=== PATIENT | male | born 1985 | race Caucasian/White ===

== ENCOUNTER → 2018-05-31 23:14 | Outpatient (CLI) | payer OTHER, SELFPAY ==
[2018-05-25 13:22] VITALS: BMI 22.8
== END ==
PROVIDERS: Referring Provider Nurse Practitioner Family
DX: G47.30 Sleep apnea, unspecified (principal)
CPT/HCPCS: 95810

== ENCOUNTER → 2018-06-28 22:22 | Outpatient (CLI) | payer OTHER, SELFPAY ==
[2018-05-25 13:22] VITALS: BMI 22.8
== END ==
PROVIDERS: Referring Provider Nurse Practitioner Family
DX: G47.33 Obstructive sleep apnea (adult) (pediatric) (principal)
CPT/HCPCS: 95811

== ENCOUNTER → 2018-08-19 14:41 | Outpatient (CLI) | payer OTHER, SELFPAY ==
[2018-05-25 13:22] VITALS: BMI 22.8
== END ==
DX: Z00.00 Encounter for general adult medical examination without abnormal findings (principal)

== ENCOUNTER 2019-02-07 09:41 | Day surgery (SDC) | payer OTHER, SELFPAY ==
[2019-01-04 09:08] VITALS: BMI 22.8
--- NOTE | 2019-01-24 09:16 | HP_ITS ---
Intake Vital Signs 01/04/19 Body Mass Index (BMI) 22.8 01/04/19 Height 6 ft 01/04/19 Weight: 167 lb 01/04/19 Body Mass Index (BMI) 22.6 01/04/19 Blood Pressure 100/74 01/04/19 Blood Pressure Location Rt brachial 01/04/19 Blood Pressure Position Sitting 01/04/19 Respiratory Rate 18 01/04/19 Pulse Rate 70 01/04/19 Pulse Source Monitor 01/04/19 Temperature 97.7 F L 01/04/19 Temperature Source Oral 01/04/19 Pulse Ox 98 01/04/19 Oxygen Delivery Method room air Intake Visit Reasons: Discuss L Inguinal Hernia Surgery (Seen Fe) Project Management It Specialist Required: No Is patient in pain?: No Allergies No Known Allergies Allergy (Verified 01/04/19 09:07) Medications NK 05/25/18 [History Confirmed 01/04/19] PFSH Medical History (Updated 01/04/19 @ 09:06 by Alexa Salcedo) Left inguinal hernia (Acute) Sleep apnea (Acute) Surgical History (Updated 01/04/19 @ 09:05 by Alexa Salcedo) History of mandibular surgery (Acute) History of wisdom tooth extraction (Acute) history left inguinal hernia repair with mesh (Acute) history of pin placement thumb (Acute) Family History Grandmother Breast cancer Aunt Breast cancer Father Hypertension High cholesterol Brother Hypertension Social History (Updated 01/04/19 @ 10:05 by Andrew Garcia MD) Smoking Status: Former smoker alcohol intake: current alcohol intake frequency: a few times a month substance use type: does not use HPI HPI HPI: LESTER SUE, is a 33 M who presents to the office today for HPI HPI Surgical H&P: Yes HPI: LESTER SUE, is a 33 M who presents to the office today for Recurrent left inguinal hernia. Patient reports bulging in his left groin. Patient reports he had left inguinal hernia repair in an open fashion in 2007. About 3 years ago he noticed the bulging return. He says that whenever he does heavy lifting it hurts. He is not having any nausea or vomiting or fevers or chills. ROS General General: No weight change, appetite, fatigue, colon cancer, breast cancer or weakness HEENT HEENT: No difficulty swallowing, eye injury, eye surgery, swollen glands or hoarseness Endo Endocrine: No thyroid disease, diabetes mellitus, thyroid cancer, Hair loss, heat intolerance or cold intolerance Skin Skin: No rash or changing moles Breast Breast: No left breast lump, right breast lump, nipple discharge, breast pain, abnormal mammogram, abnormal US or breast enlargement Musc Musculoskeletal: No back problems, arthritis, rheumatoid arthritis, gout or joint pain Cardio Cardiovascular: No murmur, pacemaker, heart disease, atrial fibrillation, high blood pressure, heart attack, heart stent, palpitations, shortness of breat with exertion or chest pain Psych Psychiatric: No depression, anxiety or hearing voices Resp Respiratory: No shortness of breath, Yes sleep apnea, No cough, No COPD, No asthma, No emphysema, No wheezing Gastro Gastrointestinal: No abdominal pain, No nausea or vomiting, No diarrhea, No constipation, No blood in stool, No acid reflux, No hemorrhoids, No ulcers, No gallbladder problem, No black,tarry stools Gil Hematologic: No blood thinners, No blood disorders, No bleeding, No anemia, No blood clots Neuro Neurologic: No system reviewed and no additional complaints, except as docu, No as per HPI, No abnormal walking, No abnormal hearing, No abnormal movements, No abnormal speech, No behavioral changes, No burning sensations, No confusion, No seizure-like activity, No unsteadiness, No dizziness, No localized weakness, No frequent falls, No headache(s), No lack of coordination, No loss of vision, No memory loss, No numbness, No other visual disturbances, No radiating pain, No restless legs, No sensory deficit, No fainting, No tingling, No tremor(s), No weakness, No other Exam Const General: cooperative Orientation: alert, oriented x3 HENMT Head: normal to inspection Ears: hearing grossly normal bilaterally Eyes General: appearance normal, both eyes and all related structures Visual Mendoza: normal visual mendoza by confrontation Neck Neck: normal visual inspection Chest Chest palpation & inspection: normal inspection of the chest Breast Palpation: No nipple discharge Resp Effort & Inspection: normal respiratory effort Auscultation: clear to auscultation bilaterally Cardio Rate: regular rate Rhythm: regular rhythm Heart Sounds: no murmurs GI Inspection: non-distended Palpation: soft, nontender Other: Patient does have bulging the left groin which is easily reducible. Musc Cervical Spine: normal cervical lordosis, cervical ROM normal Skin General: no rashes or lesions noted Neuro General: alert, oriented x3 Cranial Nerves: CN's II-XI intact bilaterally Cognition: normal cognition Extrem General: normal to inspection, full ROM Psych Appearance: grossly normal Affect: normal affect Assessment & Plan Problems 1. Recurrent left inguinal hernia K40.91 reducible Plan The patient has recurrent left inguinal hernia. It is reducible. The patient is not having any symptoms on his right side. I discussed robotic assisted laparoscopic left inguinal hernia repair with mesh with the patient. I also discussed fixing the contralateral side if there is a hernia and the patient would like to proceed with that as well. I discussed the procedure in detail including the risks. I discussed the risks of bleeding, infection, chronic groin pain, spermatic cord injury, hernia recurrence, bowel injury. Patient understands the risks and is willing to proceed. Andrew Garcia MD Pager: [facility] [address] [place] [address], [address] [place] [address] Office: Coding Level of Care Code Off vis,new,level 4 Diagnoses Recurrent left inguinal hernia K40.91 Time Spent (min) 45 I have re-examined the patient. There are no clinical changes since date of exam.
--- NOTE | 2019-02-04 10:07 | EKG12_ITS ---
Test Reason : PRE OP Blood Pressure : / mmHG Vent. Rate : 070 BPM Atrial Rate : 070 BPM P-R Int : 170 ms QRS Dur : 106 ms QT Int : 372 ms P-R-T Axes : 050 141 026 degrees QTc Int : 401 ms Normal sinus rhythm Right axis deviation Incomplete right bundle branch block Abnormal ECG Confirmed by SUMEET RENTERIA, CAMRYN ([id number]), medical transcription editor GABE BELL ([id number]) on 02/08/2019 2:42:38 PM Referred By: Andrew Garcia Confirmed By:CAMRYN FAY MD
[2019-02-04 10:56] LABS: Hematocrit 46.9 % (40-54); Hemoglobin 15.5 g/dL (13.0-16.5); Mean Corpuscular Hgb 30.2 pg (27.0-32.0); Mean Corpuscular Volume 91.2 fL (80-94); Mean Platelet Vol. 8.9 fl (6.2-12.0); Platelet Count 333 K/mm3 (150-450); RBC Distribution Width CV 13.2 % (11.6-14.6); RBC Distribution Width SD 44.9 fl (35.1-43.9); Red Blood Count 5.14 M/mm3 (4.6-6.2); White Blood Count 5.4 K/mm3 (4.4-11.0)
[2019-02-07] VITALS (7 sets, daily range): BP systolic 123–136; BP diastolic 70–95; PULSE 60–82; RESP 16–20; TEMP 36.5–36.9; O2SAT 92–100; BMI 23.2
[2019-02-07] MEDS: Lactated Ringers 1,000 ML 100 ML IV ×2 (10:38→10:45)
[2019-02-07] MEDS: Cefazolin 2 GM in 0.9% Normal Saline 100 ML IV (11:01)
[2019-02-07] MEDS: Bupivacaine Mpf 0.5% 30 ML VIAL (14:30)
--- NOTE | 2019-02-07 14:56 | PCM.DC.HER ---
Discharge Diet: Light diet - advance as tolerated Discharge Activity: Return to Normal Activity, May Not Drive - for 2-3 days or while taking narcotic pain meds., May Shower - with the bandage in place 1-2 days after surgery. Lifting Restrictions: 20 pounds for 8 weeks. Additional Activity Instructions:: Climbing stairs is fine, walking is encouraged. Sitting in bed may be uncomfortable. Sitting up using your lateral muscles (sitting up sideways) is usually more comfortable. Do not drive, work heavy equipment of sign legal documents for 24 hours. If your hernia repair was an ingunial repair, you may have scrotal swelling, an ice pack and/or athletic support can provide more comfort. Pain medications may cause nausea, you should typically eat light foods as you take your pain medications. Pain medications may also cause constipation. If you have difficulty with this, discuss with your doctor. Call your doctor if your incision/area has: Continuous Slow Oozing, Sudden Increased Bleeding, Increased Pain/ Swelling, Increased Redness, Foul Smelling Discharge Call your doctor if you observe: Fever of 101 or Higher Suture Line Care: Avoid Pulling/Pushing, Avoid Pinching/Bending Change Dressing in (Days):: 3 - Leave steri-strips for 1 week. May protect with a guaze bandaid. Cleanse incision/area with: Keep Dressing Clean & Dry Allergies/Adverse Reactions: Allergies No Known Allergies Allergy (Verified 01/31/19 08:58) Medications to take at Discharge Cholecalciferol (VIT D3) [Vitamin D] 1,000 unit PO DAILY 01/31/19 Oxycodone HCl/Acetaminophen [Percocet 5/325] 1 - 2 tablet PO Q4H PRN PRN 4 Days #20 tablet 02/07/19 The following prescriptions were given: Oxycodone HCl/Acetaminophen [Percocet 5/325] 1 - 2 tablet PO Q4H PRN PRN 4 Days #20 tablet PRN Reason: Pain Transmission Status: Sent to [facility] Orders to be completed after discharge: 12 Lead EKG [CVS] Time Frame: 01/31/19, Facility: [facility], Location: Cardiovascular Services CBC-Complete Blood Cnt No Diff Time Frame: 01/31/19, Facility: [facility], Location: Laboratory Primary Care Physician: Lesli Sanders [Primary Care Provider] - Test Results: Test results from this visit will be discussed in further detail at your follow-up appointment, if applicable. Please Follow Up With: Andrew Garcia MD When: Please call to schedule 2 week follow up appointment. [phone]
--- NOTE | 2019-02-07 14:57 | OP.PCM_ITS ---
Problem List (1) Right inguinal hernia Status: Acute (2) Recurrent left inguinal hernia Status: Chronic Comment: reducible Report of Operation Date of Procedure: 02/07/19 Pre-Operative Diagnosis: Recurrent left inguinal hernia Post-Operative Diagnosis: 1. Recurrent left inguinal hernia. 2. Right inguinal hernia Surgery/Procedure Performed:: 1. Robotic assisted laparoscopic recurrent left inguinal hernia repair with mesh. 2. Robotic assisted laparoscopic right inguinal hernia repair with mesh Description of Surgical Findings:: The patient had a recurrent hernia on the left side. The mesh was apparently in the direct space and the patient also had a large indirect hernia. On the right the patient did have a direct and indirect hernia Description of Procedure: The patient was brought back to the operating room and general anesthesia was induced. The abdomen was prepped and draped in usual sterile fashion. An incision was made superior to the umbilicus and the Veress needle was placed into the abdomen and a drop test was performed. The abdomen was then insufflated to 15 mmHg. Next the Veress needle was removed and the camera port was placed into this incision. There were no injuries from entry to the abdomen. An 8 mm port was placed in the right upper quadrant and left upper quadrant under direct visualization. The patient was placed in the Trendelenburg position and the robot was docked. The left groin was addressed first. The patient had a large piece of mesh coming through the direct space. This was tightly adherent to the surrounding tissue and was unable to be dissected free. There was an incision made in the superior peritoneum and this was dissected inferiorly. Dissection was carried laterally until the indirect sac was encountered. This was slowly reduced into the abdomen but it was very large. Once was free into the abdomen was inverted into the peritoneal cavity. Next dissection was carried medially until the mesh was encountered. The peritoneum was incised around the mesh and dissected free. Dissection was carried medially until the pubic tubercle was identified. Dissection was then taken inferiorly. Next a large piece of pro-software support representative mesh was placed across both defects and the old mesh. Next the peritoneum was re-approximated superiorly using a running 3-0V lock suture. Once the medial portion was reached the hernia sac was divided lengthwise to allow for coverage of the inferior mesh. Using another 3-0V lock suture this was sutured in place to completely cover the mesh with peritoneum. There were 2 small defect in the peritoneum which were closed with interrupted 4-0 Vicryl sutures. Once this was completed the mesh was in good position and completely covered with peritoneum. Next attention was paid to the right side. Patient had a large direct and indirect hernia on the right. The peritoneum was scored and the dissection was taken inferiorly and medially until the pubic tubercle was reached. Next dissection was carried laterally until the direct sac was reduced. Next starting laterally the dissection was carried toward the indirect sac and this was reduced into the abdomen. Dissection was then carried posteriorly until there was enough of an overlap for the mesh. Next a piece of pro-software support representative mesh was placed into the groin and unfolded. This completely covered both defects. The mesh was tacked to the medial pubic tubercle using a 4-0 Vicryl suture. Next the peritoneum was reapproximated using running 3-0 Vloc suture. The mesh was completely covered by peritoneum. Next both sides were inspected as the abdomen desufflated and appeared to be in good position. The ports were removed and the skin was injected with local anesthetic and closed with interrupted 4-0 Monocryl sutures and Steri-Strips and bandages. Testicles were checked at the end the case and the patient was taken to PACU stable condition. Grafts/Implants Used: Pro-software support representative mesh - Admit VTE Documentation VTE Mechan Device Prophylaxis: SCD's
[2019-02-07] MEDS: Acetaminophen 325 MG Tablet PO (17:14)
[2019-02-07] MEDS: oxyCODONE 5 MG Tablet PO (17:15)
== END 2019-02-07 17:33 | disposition home or self-care (01) ==
LOC: SDC 09:42 → AC 09:44
PROVIDERS: Referring Provider Surgery; Visit Provider Surgery
PROC: (CPT 49650; principal; 2019-02-07 11:10)
DX: K40.21 Bilateral inguinal hernia, without obstruction or gangrene, recurrent (principal); E78.00 Pure hypercholesterolemia, unspecified; G47.30 Sleep apnea, unspecified; Z87.891 Personal history of nicotine dependence
CPT/HCPCS: 00840; 49650; 49651; S2900; 36415; 85027; 93005; J7120; J2405

== ENCOUNTER → 2019-03-25 12:55 | Outpatient (CLI) | payer OTHER, SELFPAY ==
[2019-03-09 08:27] VITALS: BMI 23.1
--- NOTE | 2019-03-25 12:57 | ECHOD_ITS ---
Reason For Study: ARRHYTHMIA Procedure This was a 2D Doppler, Color Flow transthoracic echocardiogram. Exam performed in department. Left Ventricle Normal LV size. Left ventricular systolic function is lower limits of normal. The estimated ejection fraction is 53 %. Normal diastology for age. No regional wall motion abnormalities noted. Right Ventricle Normal RV size. Normal systolic function. Atria Normal left atrium. Normal right atrium. Mitral Valve Normal mitral valve. Tricuspid Valve Normal tricuspid valve. Aortic Valve Normal aortic valve. Trisinus/trileaflet aortic valve. Pulmonic Valve Normal pulmonic valve. Great Vessels Normal aortic root. Pericardium/Pleural No pericardial effusion. MMode/2D Measurements & Calculations LVIDd: 5.4 cm IVSd: 0.84 cm Ao root diam: 3.4 cm LVIDs: 3.8 cm LVPWd: 0.87 cm RVDd: 3.3 cm FS: 29.8 % LAV(MOD-bp): 58.8 ml LA A4 area: 17.5 cm2 LA dimension(2D): 2.8 cm LAV(MOD-bp) Indexed: 29.5 ml/m2 LAV(MOD-sp2): 51.7 ml LAV(MOD-sp4): 51.7 ml RA A4 area: 14.5 cm2 Time Measurements MV dec time: 0.14 sec Doppler Measurements & Calculations MV E max darren: 72.4 cm/sec Lat Peak E' Darren: 11.5 cm/sec Med Peak E' Darren: 10.6 cm/sec MV A max darren: 47.1 cm/sec E/E' lat: 6.3 E/E' med: 6.8 MV E/A: 1.5 Ao V2 max: 89.6 cm/sec LV V1 max: 74.3 cm/sec PA V2 max: 92.2 cm/sec Ao max P.2 mmHg LV V1 max P.2 mmHg TR max darren: 198.7 cm/sec TR max P.8 mmHg Interpretation Summary Normal LV size. Left ventricular systolic function is lower limits of normal. The estimated ejection fraction is 53 %. Normal diastology for age. Structurally normal valves. Ordering Physician: Morris Rosales Referring Physician: Lesli [facility] Performed By: Alexa Erazo, JOSI, RVT
== END ==
PROVIDERS: PCP Nurse Practitioner Family; Referring Provider Internal Medicine Cardiovascular Disease; Visit Provider Internal Medicine Cardiovascular Disease
DX: I45.10 Unspecified right bundle-branch block (principal); I49.8 Other specified cardiac arrhythmias
CPT/HCPCS: 93306

== ENCOUNTER 2020-10-02 18:11 | Emergency (ER) | payer OTHER, SELFPAY ==
[2019-03-09 08:27] VITALS: BMI 23.1
[2020-10-02 18:11] VITALS: BP 128/76; PULSE 87; RESP 18; TEMP 35.9; O2SAT 96; BMI 28.8
--- NOTE | 2020-10-02 18:24 | ED.VIS.LOWEX ---
HPI History of Present Illness Chief Complaint: Lower Extremity Injury Detail of Chief Complaint: Injury to his right ankle about a half an hour ago Informant: patient Narrative Narrative: Patient states that he was playing basketball about half an hour ago when he was running down the court and felt a pop in his ankle. Patient felt like somebody had stepped on him. Patient was able to use his leg like a crutch and put some weight on it but having hard time moving his foot. Patient otherwise has no medical history. He denies any other injuries. [facility] Medical History (Updated 10/02/20 @ 18:[address] Anthony Steiner, DO) Abnormal electrocardiogram Incomplete right bundle branch block Left inguinal hernia Obstructive sleep apnea Recurrent left inguinal hernia Right inguinal hernia Home Medications cholecalciferol (vitamin D3) 1,000 unit PO DAILY 01/31/19 [History Last Taken Unknown] psyllium husk 0.52 gram capsule 0.52 g PO DAILY 03/09/19 [History Last Taken Unknown] hydrocodone-acetaminophen 1 tab PO Q4H PRN PRN 2 Days #10 tablet 10/02/20 [Rx Last Taken Unknown] Allergy/AdvReac Type Severity Reaction Status Date / Time No Known Allergies Allergy Verified 10/02/20 18:14 Family History Grandmother Breast cancer Aunt Breast cancer Father Hypertension High cholesterol Brother Hypertension Grandfather Myocardial infarction Grandfather Myocardial infarction Surgical History History of mandibular surgery History of open reduction and internal fixation (ORIF) procedure History of wisdom tooth extraction Hx of bilateral inguinal hernia repair (02/07/19) Social History (Updated 03/09/19 @ 09:[address] Morris Rosales MD) Smoking Status: Former smoker alcohol intake: current alcohol intake frequency: a few times a month substance use type: does not use ROS ROS ED Constitutional Constitutional ED: Reports systems reviewed and no addt'l complaints, except as documented; Denies body ache(s), change in weight or chills Eyes Eyes: Denies acute decrease in peripheral vision, change in vision, double vision or loss of vision ENT ENT ED: Reports none; Denies ear pain, lip swelling, loss taste/smell, neck pain, otalgia or sore throat Cardiovascular Cardiovascular: Reports none; Denies abdominal pain, chest pain with activity, leg edema, lightheadedness, palpitations, rapid heart rate or syncope Respiratory/Chest Respiratory/Chest: Reports none; Denies change in mental status, dry cough, dyspnea, hemoptysis, shortness of breath at rest or shortness of breath with exertion Gastrointestinal Gastrointestinal: Reports none; Denies abdominal pain, change in stool character, diarrhea, hematemesis, hematochezia, melena, rectal bleeding or vomiting Genitourinary Genitourinary ED: Reports none; Denies abdominal discomfort, anuria, dysuria, genital pain or polyuria Musculoskeletal Musculoskeletal: Reports none and other Details: Right ankle injury ; Denies arthralgias, back pain, difficulty walking, extremity pain, muscle weakness or myalgias Integumentary Reports none; Denies abscess or rash Neurologic Neurologic: Reports none; Denies abnormal gait, confusion, focal weakness, frequent falls, headache(s), loss of vision, numbness, paresthesias, radicular pain, vertigo or weakness Psychiatric Psychiatric: Reports systems reviewed and no addt'l complaints, except as documented and none; Denies behavioral changes, confusion, difficulty concentrating, hallucinations, suicidal ideation, tactile hallucinations or visual hallucinations Endocrine Endocrinology: Denies none, cold intolerance, excessive sweating, fatigue or heat intolerance Hematologic/Lymphatic Hematologic/Lymphatic: Reports none; Denies anemia, easy bleeding or easy bruising Allergic/Immunologic Allergic/Immunologic ED: Denies as per HPI, none, lip swelling, mouth swelling, throat swelling, tongue swelling or hives EXAM Physical Exam Const Vital Signs: 10/02/20 18:11 Temperature 96.6 F L Temperature Source Temporal Pulse Rate 87 Respiratory Rate 18 Blood Pressure 128/76 H Blood Pressure Mean 93 Pulse Ox 96 Oxygen Delivery Method Room Air Positive well nourished and well developed General Appearance ED: well developed and NAD HEENT Reports TM's clear and moist mucous membranes normocephalic and atraumatic; Negative for trauma or tenderness Tympanic Membrane ED: Yes TM's clear Eyes PERRL and EOMs intact bilaterally General Eye ED: Negative for pale conjunctiva or scleral icterus Neck no lymphadenopathy, supple and no JVD General: Negative for tenderness Chest Wall inspection of chest normal and palpation of chest normal Chest: Negative for tenderness Resp normal respiratory effort and clear to auscultation bilaterally Effort and Inspection: Negative for respiratory distress or pain with movement Auscultation: Negative for rhonchi, wheezes or diminished lung sounds Cardio regular rate, regular rhythm, S1 normal heart sound, S2 normal heart sound and no murmurs Peripheral Pulses: pulses 2+ throughout GI normal to inspection, nondistended, normoactive bowel sounds, soft to palpation, non-tender, non-distended and no masses Back/Spine no CVA tenderness and no thoracic nor lumbar tenderness Extremity normal to inspection Extremity Narrative: Evaluation of the right ankle reveals deformity over the Achilles tendon. Patient has a positive Quinn's test. Tenderness over the calf on exam noted. Patient has no bony tenderness at the ankle or foot. Neurovascularly intact distally. General Extremety ED: Negative for edema General Extremity: Negative for edema Neuro oriented x3, CN's II-XII intact bilaterally, no sensory deficits noted and gait normal Sensorium / Orientation: awake, alert, oriented to person, oriented to place and oriented to time Motor Exam: strength 5/5 throughout and strength abnormal Psych mental status grossly normal Skin no rashes or lesions noted and no wounds MDM MDM MDM Narrative Medical decision making narrative: Case will be discussed with orthopedic surgeon. Patient will be placed in a posterior splint. He will be given crutches. Patient will be given a prescription for [place] for pain. Patient advised to ice and elevate the extremity. Discharge Plan Triage Chief Complaint: Lower Extremity Injury ED Provider: Anthony Steiner Dx/Rx/DC Orders Instructions: ED Tendon Rupture Achilles Prescriptions: New hydrocodone-acetaminophen [hydrocodone-acetaminophen] 1 TABLET tablet 1 tab PO Q4H PRN PRN (Reason: Pain) 2 Days Qty: 10 RF: 0 No Action psyllium husk [Fiber (psyllium husk)] 0.52 gram capsule 0.52 g PO DAILY RF: 0 cholecalciferol (vitamin D3) 1,000 UNIT tablet 1,000 unit PO DAILY RF: 0 Primary Care Provider: Lesli Burton Referrals: Sawyer Ferrara MD [STAFF PHYSICIAN] - 3-5 Days Lesli Burton [Primary Care Provider] - Disposition Disposition: Home, Self Care
== END 2020-10-02 18:58 | disposition home or self-care (01) ==
LOC: ED 18:35
PROVIDERS: Emergency Provider Emergency Medicine
DX: S86.011A Strain of right Achilles tendon, initial encounter (principal); X58.XXXA Exposure to other specified factors, initial encounter; Y93.67 Activity, basketball; Y92.310 Basketball court as the place of occurrence of the external cause; Y99.9 Unspecified external cause status; G47.33 Obstructive sleep apnea (adult) (pediatric); Z87.891 Personal history of nicotine dependence
CPT/HCPCS: 29515; 99283

== ENCOUNTER → 2020-10-03 13:27 | Outpatient (CLI) | payer OTHER, SELFPAY ==
[2020-10-02 18:11] VITALS: BMI 28.8
--- NOTE | 2020-10-03 13:42 | MRI_ITS ---
STUDY: MRI RIGHT ANKLE WITHOUT CONTRAST REASON FOR EXAM: Male, 34 years old. STRAIN RIGHT ACHILLES TENDON TECHNIQUE: Standardized fat and water weighted pulse sequences were obtained in all 3 orthogonal planes. COMPARISON: None. FINDINGS: There is a complete small to moderate size full-thickness tear of the middle one third aspect of the Achilles tendon, measuring 1.36 cm in diameter. The proximal distal fibers are moderately thickened and abnormal in signal. The portion of the Achilles tendon attachment to the posterior calcaneal facet is normal. A small to moderate amount of fluid is present around the torn tendon and adjacent soft tissues. A small ankle joint effusion is also present. No marrow edema or osteochondral defect or occult fracture is present. The anterior talofibular ligament is completely torn. Normal posterior tibialis tendon. Normal flexor digitorum longus tendon. Normal flexor hallucis longus tendon. Normal peroneus longus and brevis tendons. Normal tibialis anterior tendon. Normal extensor hallucis longus tendon. Normal extensor digitorum longus tendons. Normal plantar fascia. Normal plantar calcaneal tubercles. Normal intrinsic muscles of the rearfoot. Normal distal tibiofibular syndesmotic ligamentous complex. Normal subtalar ligaments and sinus tarsi. Normal deltoid ligamentous complexes. Normal plantar calcaneonavicular (spring) ligament. Normal tibiotalar articulation. Normal talar dome. Normal subtalar articulations. Normal talonavicular articulation. Normal calcaneocuboid articulation. Normal navicular-cuneiform articulations. MRI/Lower Ext Joint Only (Routine) IMPRESSION: 1. 1.36 cm full-thickness tear in the middle one third aspect of the Achilles tendon 2. complete tear of the anterior talofibular ligament. Electronically Signed: Nilo Robledo MD at 17:00 EDT , Service support ,
--- NOTE | 2020-10-03 13:43 | EKG12_ITS ---
Test Reason : PREOP Blood Pressure : / mmHG Vent. Rate : 081 BPM Atrial Rate : 081 BPM P-R Int : 158 ms QRS Dur : 092 ms QT Int : 360 ms P-R-T Axes : 043 056 040 degrees QTc Int : 418 ms Normal sinus rhythm Indeterminate axis Septal [place], age undetermined, cannot be excluded Confirmed by KAYLIN RENTERIA, NAYAN ([id number]), website/blog editor MARIAM COMER ([id number]) on 10/08/2020 1:24:17 PM Referred By: Trevon Newman Confirmed By:NAYAN EWING MD
--- NOTE | 2020-10-03 13:45 | RAD_ITS ---
STUDY: X-RAY CHEST REASON FOR EXAM: Male, 34 years old. PRE OP TECHNIQUE: PA and lateral views of the chest. COMPARISON: None. FINDINGS: The lungs are clear and expanded. There is no demonstrated pleural abnormality. Normal size heart. Normal mediastinum and jermaine. Normal visualized pulmonary arteries. Normal visualized aortic arch and descending thoracic aorta. Normal visualized thoracic spine. Normal visualized ribs, clavicles, and shoulders. There is no demonstrated abnormality of the visualized soft tissue structures of the upper abdomen. RAD/Chest PA and Lateral IMPRESSION: Normal x-ray examination of the chest. Electronically Signed: Wil Mojica MD at 14:42 EDT , Service support ,
[2020-10-03 17:31] LABS: Absolute Lymphocyte Count 1.97 X10^3/uL (0.83-4.51); Absolute Neutrophil Count 3.5 X10^3/uL (2.0-7.7); Basophil# 0.04 X10^3/uL; Basophil% 0.6 % (0-1); Eosinophil# 0.39 X10^3/uL; Hematocrit 44.3 % (40-54); Hemoglobin 15.1 g/dL (13.0-16.5); Lymphocyte # 1.97 X10^3/ul (0.83-4.51); Lymphocyte % 30.4 % (19-41); Mean Corp Hgb Conc 34.1 g/dL (32-36); Mean Corpuscular Hgb 30.7 pg (27.0-32.0); Monocyte# 0.58 X10^3/uL; NRBC Flagged by Analyzer 0 % (0-5); Neutrophil # 3.49 X10^3/uL (2.7-7.7); Neutrophil % 53.8 % (47-70); Platelet Count 343 K/mm3 (150-450); RBC Distribution Width CV 13.1 % (11.6-14.6); RBC Distribution Width SD 43.4 fl (35.1-43.9); Red Blood Count 4.92 M/mm3 (4.6-6.2); White Blood Count 6.5 K/mm3 (4.4-11.0)
[2020-10-03 17:41] LABS: Prothrombin Time (Protime)PT. 12.6 SECONDS (11.7-14.9)
[2020-10-03 18:20] LABS: Anion Gap 8 (5-15); BUN 14 mg/dL (7-18); BUN/Creat Ratio 14.5 RATIO (10-20); Calcium,Total 8.6 mg/dL (8.5-10.1); Chloride 105 mmol/L (98-107); Creatinine, Serum 0.96 mg/dL (0.70-1.30); EST Glomerular Filtration Rate 95 mL/min (>60); Est Glom Filt Rate - Afr Amer 115 mL/min (>60); Glucose 91 mg/dL (74-106); Potassium 3.8 mmol/L (3.5-5.1); Sodium Level 140 mmol/L (136-145)
[2020-10-03 18:51] LABS: Hemoglobin A1c 5.2 % (3.8-5.6)
== END ==
PROVIDERS: Referring Provider Podiatrist Foot & Ankle Surgery; Visit Provider Podiatrist Foot & Ankle Surgery
DX: Z01.810 Encounter for preprocedural cardiovascular examination (principal); S86.011A Strain of right Achilles tendon, initial encounter; X58.XXXA Exposure to other specified factors, initial encounter; Y93.9 Activity, unspecified; Y92.9 Unspecified place or not applicable; Y99.9 Unspecified external cause status
CPT/HCPCS: 36415; 71046; 73721; 80048; 83036; 85025; 85610; 93005

== ENCOUNTER 2020-10-05 12:39 | Day surgery (SDC) | payer OTHER, SELFPAY ==
[2020-10-05] VITALS (7 sets, daily range): BP systolic 128–151; BP diastolic 83–93; PULSE 62–97; RESP 16; TEMP 36.1–36.9; O2SAT 94–100; BMI 24.7
[2020-10-05] MEDS: Lactated Ringers 1,000 ML 100 ML IV (12:50)
[2020-10-05] MEDS: Cefazolin 2 GM in 0.9% Normal Saline 100 ML IV (14:10)
--- NOTE | 2020-10-05 14:15 | RAD_ITS ---
STUDY: X-RAY - RIGHT CALCANEUS REASON FOR EXAM: Male, 34 years old. ACHILLES TENDON RUPTURE REPAIR, OPEN VS PERCUTANEOUS TECHNIQUE: 3 intraoperative fluoroscopic view(s) of the calcaneus were obtained. COMPARISON: None. FINDINGS: A surgical instrument is seen over the proximal aspect of the posterior calcaneal facet. Soft tissue defect/rupture seen in the distal one third region of the Achilles tendon on the initial image. Some lucency is superimposed over the posterior calcaneal facet on the last 2 images which could be related to the soft tissues or possibly to an osteotomy defect. RAD/Calcaneus min 2 Views IMPRESSION: Status post Achilles tendon repair Electronically Signed: Nilo Robledo MD at 23:45 EDT , Service support ,
[2020-10-05] MEDS: Bupivacaine Mpf 0.5% 30 ML VIAL (15:40)
[2020-10-05] MEDS: Lidocaine 1% (30 ml sdv) 30 ML Vial (15:40)
--- NOTE | 2020-10-05 16:05 | PCM.OPRPT ---
Problems Associated Problem List Diagnoses (1) Achilles tendon tear: (2) Pain of right lower extremity: Report of Operation Date of Procedure: 10/05/20 Pre-Operative Diagnosis: Right Achilles tendon rupture Post-Operative Diagnosis: Right Achilles tendon rupture Surgery/Procedure Performed:: Repair of right Achilles tendon rupture Description of Surgical Findings:: Hemostasis: Well-padded pneumatic right thigh tourniquet, 350 mmHg, 67 minutes Materials: Arthrex PARS system was utilized with #2 suture tape, two swivelock bone anchors (4.75), 3-0 vicryl, 4-0 monocryle The patient tolerated the procedure and anesthesia well. The patient was transported to the PACU with vital signs stable and vascular status intact to the surgical limb. To ice and elevate for pain and inflammation management. Postoperative x-rays were reviewed prior to leaving the operating room. Postoperative orders were entered electronically. Surgeon: Zara Canada fingernail former: None (Mario Adler DPM, PGY2) Type of Anesthesia: General and Local (One-to-one mixture of 1% lidocaine plain 0.5% Marcaine plain administered to right lower extremity and local infiltrative manner (preoperative: 7 cc, postoperative: 15 cc)) Special Medications: None Specimen's removed: None Estimated Blood Loss (mL): <50 mL Description of Procedure: Indications: This is a 34-year-old male with significant past medical history of sleep apnea who sustained an Achilles rupture of the right lower extremity earlier this week on 10-02-20. He was playing basketball and felt like somebody kicked him in the back of his leg. There was no contact made and it was noted he was unable to bear weight and no longer had normal muscular function of this limb. He presented to the emergency room and had subsequent MRI performed. This demonstrated a full thickness tear of the Achilles tendon approximately 4 cm proximal to its insertion point. There was a gap of less than 2 cm. Any other reported suspected injury to the ankle per MRI read did not clinically correlate with symptomatic injury at this time. During his referral visit at the [facility], x-ray did not demonstrate any fractures or dislocations. The ankle mortise appeared to be intact. Kager's triangle was not visualized well. Clinically, his neurovascular status remained intact. He did not have plantar flexion of the foot upon the leg when the calf was squeezed during the Quinn test. Preoperative H&P (Dr. Benitez) were reviewed including his diagnostic data. There were no gross abnormalities noted with labs (CBC, CMP), chest xray, or preoperative EKG. Preoperative indications, planned procedure, benefits, risk, anticipated healing time and management were reviewed. The patient understands and elects proceed with surgery at this time. He understands all of the surgical and nonsurgical options including the benefits and risks. No guarantees were made. The patient understands risk and complications include but are not limited to following: pain, swelling, scarring, need for further surgery, tendon contracture, transfer lesion, hardware failure, arthritis, need for further surgery, loss of lower extremity strength, delayed or nonhealing, infection, blood clot, allergic reaction, loss of limb, function, or life. The informed surgical limb and consent were signed. I answered all the patient's questions. The patient also understands there is an inherent risk with being in the hospital and undergoing a procedure during the time of COVID-19 pandemic. The patient understands precautions are being taken to prevent transmission. This patient understands the benefits and risks of having a procedure at this time versus waiting in which the benefits are reasonable at this time. Procedure in detail: The patient was transported to the operating room via cart. General anesthesia was initiated by the anesthesia team. Next, the patient was placed on the operating room table in the prone position in a protective manner. Final verification of the patient, surgery, limb designation was performed via the timeout procedure. A well-padded pneumatic right thigh tourniquet was placed. The right lower extremity was prepped and draped in the usual aseptic manner. The preoperative injection was administered at this time. The leg was exsanguinated with an Esmarch bandage and the tourniquet was inflated. Surgery proceeded in the following manner: Attention was first directed to the posterior leg in which there was a palpable achilles tendon dell. Just proximal to this location and approximately 5 cm above the insertion of the Achilles at the calcaneus, a transverse incision approximately 2-1/2 cm was made through the skin. Blunt dissection was carefully performed down to the peritenon layer in which an injury hematoma was noted. The peritenon was gently reflected to identify the proximal most portion of the torn Achilles tendon. This was grabbed with a Amy. Next the Arthrex PARS jig was applied around the torn Achilles tendon taking care to stay within the peritenon. This was secured in place and the suture tapes were passed according to standard protocol to allow confident purchase through the achilles and to also allow for a locking stitch. The protocol was followed and was successfully performed. Each wire was next pulled to reduce creep from the injury site and to allow approximation of the proximal and distal portions of the torn Achilles. Attention was focused to the posterior calcaneus in which two 1 cm linear incision was made on each side medially and laterally of the Achilles tendon through the skin. Blunt dissection was performed down directly to the calcaneus wall in which drilling and tapping was performed to allow entry of the 4.75 swivel lock anchor. Next a suture passer was entered through the distal portion of the intact Achilles tendon through to the small incision site, and then proximately applied sutures were passed to allow approximation of both achilles ends. This was done according to standard protocol and was solid. At this time the foot was placed in approximately 15 degrees of plantarflexion and this was balanced. There was no longer a palpable dell and the limb was noted to glide in a smooth manner passively. The extra FiberWire was next used to apply a horizontal mattress type locking stitch at the direct repair site. Saline irrigation was performed. The tourniquet was deflated at this time and brisk capillary refill time was noted to all digits of the right foot. No pulsatile bleeding was noted and hemostasis was considered controlled. Throughout the entire procedure there was no necrosis or purulence noted. The peritenon was repaired with 3-0 Vicryl and there was minimal deep sutures applied with 3-0 Vicryl as well. A postoperative injection was administered at this time as noted. All of the skin sites were reapproximated with 4-0 Monocryl utilizing subcuticular and horizontal mattress technique. A postoperative dressing consisting of Steri-Strips, gauze, Kerlix, abdominal pads were applied. Additionally, a well-padded posterior mold splint was applied with the foot in a plantarflexed position. After procedure: The patient tolerated the procedure and anesthesia well. The patient was transported to the PACU with vital signs stable and vascular status intact to the surgical limb. To ice and elevate for pain and inflammation management. The patient was provided with a prescription for Cascade and was advised on safe and proper use. If his pain is controlled it is okay to transition to [id number] ibuprofen. Postoperative x-rays were reviewed prior to leaving the operating room in which proper placement of bone anchors was confirmed. No acute injuries were noted. He was advised to maintain a nonweightbearing status and he is using crutches. He was advised to keep his dressing and splint clean, dry, and intact until [facility]-up [facility]. He will be discharged home. Postoperative orders were entered electronically. Zara Canada DPM, [facility] Grafts/Implants Used: #2 suture tape, arthex swivelock anchors (2, 4.75) Complications None Admit VTE Documentation VTE Present on Admission: No VTE Mechan Device Prophylaxis: SCD's VTE Pharm Prophylaxis ordered?: No Reason prophylaxis not ordered:: Procedure Not Indicated
--- NOTE | 2020-10-05 16:06 | EX.PCM.DISCH ---
Discharge Instructions Follow Up Care Test Results: Test results from this visit will be discussed in further detail at your follow-up appointment, if applicable. Discharge Plan Admission Primary Reason for Your Visit: s/p achilles rupture repair Attending Provider: Zara Canada Primary Care Provider: Lesli Burton Instructions Patient Instructions: Achilles Tendon Rupture Additional Instructions / Restrictions: -Ice behind knee for no more than 15 minutes per hour -Elevate surgical limb -Continue non weightbearing status with crutches for assistance -Keep dressing and splint clean, dry, and intact until follow up next week at [facility] (10/11/20 at 14:00). -If your pain is controlled it is ok to tranition to over the counter ibuprofen instead of prescription hydrocodone/acetaminophen. -Take pain medication with food. -Call Dr. Canada sooner if questions or concerns at [phone]. Discharge Orders/Prescriptions Prescriptions: New hydrocodone-acetaminophen 5-325 mg tablet 1 tab PO Q6H PRN (Reason: pain) 5 Days Qty: 20 RF: 0 No Action hydrocodone-acetaminophen [hydrocodone-acetaminophen] 1 TABLET tablet 1 tab PO Q4H PRN PRN (Reason: Pain) 2 Days Qty: 10 RF: 0 acetaminophen 325 mg Tablet 650 mg PO Q4H PRN (Reason: Pain) RF: 0 ibuprofen 200 mg Tablet 200 mg PO Q6H PRN (Reason: Pain) RF: 0 Referrals / Follow Up: Lesli Burton [Primary Care Provider] - Disposition Disposition (needs filled in before D/C Order can be placed): Home, Self Care
[2020-10-05] MEDS: HYDROcodone Bitartrate/Apap 5/325 Tablet PO (17:58)
== END 2020-10-05 18:42 | disposition home or self-care (01) ==
PROVIDERS: Referring Provider Podiatrist; Visit Provider Podiatrist
PROC: (CPT 27650; principal; 2020-10-05 13:45)
DX: M66.371 Spontaneous rupture of flexor tendons, right ankle and foot (principal); G47.33 Obstructive sleep apnea (adult) (pediatric)
CPT/HCPCS: 01472; 27650; 73650; 76000; J7120; J2405

== ENCOUNTER 2020-11-27 15:00 | Outpatient (RCR) | payer OTHER, SELFPAY ==
[2020-10-05 12:50] VITALS: BMI 24.7
--- NOTE | 2020-11-13 15:59 | HP.PTEVAL_ITS ---
Patient's Visit Information LESTER SUE is a 35 year old M referred to Physical Therapy by Dr. Zara Canada DPM with a diagnosis of achilles rupture repair 10/05/20. Date of Evaluation: 11/13/20 Physical Therapist: Rajinder Esposito DPT, OCS, CSCS - Visit Plan Frequency: 1-2x /Week Duration: 3 Months Plan: 1-2x/week(pt travels alot and not able to make it in as ordered 2-3x/week) for. wean heel lifts in boot over next 2-3 weeks as tolerated. Pt is WBAT in boot but can wean curtches adn heel lifts to tolerance. Strengthening and ROM R ankle achilles, PROM, progression of proprioception and stretches. Pt back to doctor 11/29 WB in boot with heel lifts only with ambulation until then, may do out of boot for standing ex but not walking. TENS and ice if needed. - Subjective Ruptured R achilles playing basketball 2 months ago. Had it repaired 3 days later. Was in compression wrap with splint NWB for a month. Then in walking boot 2 weeks ago WBAT with crutches. Is allowed WBAT in boot has heel wedges to take pressure off. Pain is minimal, swelling is minimal. Endo fo 10 hour wrok day and he wants crutches. Walks withotu crutches earlier in day. Sleep is OK. 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 Co workers understand. Hobbies: works alot. Basic ADL I. No stairs. Avoids ones he has option to do. Wants to be able to drive. - Pain R back ankle Pain Intensity (Out of 10): 0 Pain Intensity Range: 0, 1 - Objective R boot on with 2 heel lifts in and walking with crutches WBAT(50% ) on R. Walks with boot I without crutches but tends to trun foot out. We took one lift out today and walked wella dn I without pain. Trasnfers I bed and chair. AROM R ankle -12 DF, 45 PF, 30 inv adn 18 eversion, symmetrical iwth L except DF adn PF. Strength DF, ev, inv 4+ R and PF 3. reflexes patella 2/3. Walking is in boot only and with one heel lift in to take stress of the achilles. Pt is mobile and in good shape otherwise. - Goals Goal 1:: Walk in boot wihtout heel lifts without pain community distance Goal Time Frame: 2-4 Weeks Goal 2:: Walk without boot when allowed by doctor without gait deviations Goal Time Frame: 6-8 Weeks Goal 3:: steps reciprocally without rail Goal Time Frame: 6-8 Weeks Goal 4:: Pt feel back to 100% activities Goal Time Frame: 8-12 Weeks - Rehabilitation Potential Physical Therapy Diagnosis: diminished mobility from achilles rupture. Rehabilitation Potential: Good - Anticipated Interventions Patient/Client Instruction: Educate patient on: Condition, Plan of Care For the Purpose of:: To decrease pain, To increase ROM, To improve muscle performance and motor function, To increase tolerance to activity/condition/position, To improve ability of physical actions for home/community/work/leisure Therapeutic Exercise to Include: Strength training, Flexibilty training, Gait and locomotor training, Passive ROM, Active ROM For the Purpose of:: To decrease pain, To increase ROM, To improve muscle performance and motor function, To increase tolerance to activity/condition/position, To improve ability of physical actions for home/community/work/leisure, To improve gait and locomotor functions, To improve safety with gait Manual Therapy Techniques to Include: Mobilization, Passive ROM, Soft tissue mobilization For the Purpose of:: To decrease pain, To increase ROM, To improve muscle performance and motor function, To increase tolerance to activity/condition/position TENS: Yes Cryotherapy (ice pack, ice massage): Yes Thermo therapy (hot pack): Yes For the Purpose of:: To decrease pain, To increase ROM, To improve nutrient delivery to tissue, To improve muscle performance and motor function Thank you for the opportunity to evaluate your patient. For Medicare and Medicare HMO plans, please review the plan of care and approve it. It will need to be FAXED BACK to us at [phone] for Medicare purposes. For Medicare only, by signing this I certify the plan of care. Please let me know if there are questions or concerns regarding this plan of care. Physician Signature: Date:
--- NOTE | 2021-02-11 14:39 | HP.PTDCNRP_ITS ---
LESTER SUE was seen in my office for initial evaluation on 11/13/20. The following Plan of Care was established for this patient: Initial Frequency: 1-2x /Week Initial Duration: 3 Months Patient/Client Instruction: Educate patient on: Condition, Plan of Care For the Purpose of:: To decrease pain, To increase ROM, To improve muscle performance and motor function, To increase tolerance to activity/condition/position, To improve ability of physical actions for home/com munity/work/leisure Therapeutic Exercise to Include: Strength training, Flexibilty training, Gait and locomotor training, Passive ROM, Active ROM For the Purpose of:: To decrease pain, To increase ROM, To improve muscle performance and motor function, To increase tolerance to activity/condition/position, To improve ability of physical actions for h ome/community/work/leisure, To improve gait and locomotor functions, To improve safety with gait Manual Therapy Techniques to Include: Mobilization, Passive ROM, Soft tissue m obilization For the Purpose of:: To decrease pain, To increase ROM, To improve muscle performance and motor function, To increase tolerance to activity/condition/position TENS: Yes Cryotherapy (ice pack, ice massage): Yes Thermo therapy (hot pack): Yes For the Purpose of:: To decrease pain, To increase ROM, To improve nutrient delivery to tissue, To improve muscle performance and motor function This patient was last seen in our office 11/27/20. Pertinent comments regarding their Physical therapy will appear below: Pt seen 3 visits of POC then cancelled other visits. At this point, it has been over 2 months and I will disocntinue due to nonattendance. At this point I will be discontinuing this patient from physical therapy. I would be happy to see this patient again in the future if found appropriate by the physician. Thank you! Rajinder Esposito, DPT, OCS, CSCS Balance/Gait/Functional tests - Balance/Special Test Scores Lower Extremity Functional Score: 31
== END 2020-11-27 19:00 | disposition home or self-care (01) ==
LOC: PT 15:00
PROVIDERS: Referring Provider Podiatrist; Visit Provider Podiatrist
DX: Z47.89 Encounter for other orthopedic aftercare (principal); S86.011D Strain of right Achilles tendon, subsequent encounter; X58.XXXD Exposure to other specified factors, subsequent encounter
CPT/HCPCS: 97110; 97140; 97162

== ENCOUNTER → 2020-12-04 14:52 | Outpatient (CLI) | payer OTHER, SELFPAY ==
[2020-12-04 15:36] LABS: Absolute Neutrophil Count 3.3 X10^3/uL (2.0-7.7); Basophil# 0.04 X10^3/uL; Basophil% 0.7 % (0-1); Eosinophil# 0.37 X10^3/uL; Eosinophils% 6.1 % (0-5); Hematocrit 41.7 % (40-54); Hemoglobin 14.2 g/dL (13.0-16.5); Lymphocyte % 29.9 % (19-41); Mean Corp Hgb Conc 34.1 g/dL (32-36); Mean Corpuscular Hgb 30.8 pg (27.0-32.0); Mean Corpuscular Volume 90.5 fL (80-94); Mean Platelet Vol. 8.6 fl (6.2-12.0); Monocyte# 0.55 X10^3/uL; Monocyte% 9.1 % (0-10); NRBC Flagged by Analyzer 0 % (0-5); Neutrophil # 3.26 X10^3/uL (2.7-7.7); Platelet Count 367 K/mm3 (150-450); RBC Distribution Width CV 12.9 % (11.6-14.6); RBC Distribution Width SD 42.5 fl (35.1-43.9); Red Blood Count 4.61 M/mm3 (4.6-6.2)
[2020-12-04 16:13] LABS: Vitamin B12 305 pg/mL (211-911)
[2020-12-04 16:49] LABS: ALB/GLOB Ratio 1.2 RATIO (0.9-2.4); AST(SGOT) 31 U/L (15-37); Alanine Aminotransfer ALT/SGPT 78 U/L (16-61); Albumin, Serum 3.6 g/dL (3.2-5.0); Alkaline Phosphatase 37 U/L (45-117); Anion Gap 5 (5-15); BUN 15 mg/dL (7-18); BUN/Creat Ratio 16.2 RATIO (10-20); Calcium,Total 8.5 mg/dL (8.5-10.1); Chloride 106 mmol/L (98-107); Cholesterol 252 mg/dL (200); Creatinine, Serum 0.93 mg/dL (0.70-1.30); EST Glomerular Filtration Rate 99 mL/min (>60); Est Glom Filt Rate - Afr Amer 120 mL/min (>60); Globulin 3.1 g/dL (2.2-4.2); Glucose 100 mg/dL (74-106); High Density Lipoprotein 42 mg/dL; Iron 122 ug/dL (65-175); Iron Binding Capacity,Total 320 ug/dL (250-450); PERCENT IRON SATURATION 38.1 % (15.0-55.0); Potassium 3.7 mmol/L (3.5-5.1); Protein, Total 6.7 g/dL (6.4-8.2); Sodium Level 140 mmol/L (136-145); T4 Free Direct 0.96 ng/dL (0.76-1.46); Thyroid Stim Hormone (TSH) 2.36 uIU/mL (0.358-3.74); Triglycerides 205 mg/dL; Very Low Density Lipoprotein 41 mg/dL (5-40)
[2020-12-06 19:49] LABS: Thyroid Peroxidase AB 13 IU/mL (0-34)
[2020-12-07 12:58] LABS: Vitamin D 1,25-Dihydroxy 42.1 pg/mL (19.9-79.3)
== END ==
PROVIDERS: Referring Provider Nurse Practitioner Adult Health; Visit Provider Nurse Practitioner Adult Health
DX: F10.20 Alcohol dependence, uncomplicated (principal)
CPT/HCPCS: 36415; 80053; 80061; 82607; 82652; 82746; 83540; 83550; 84439; 84443; 85025; 86376

== ENCOUNTER 2021-03-25 15:00 | Outpatient (RCR) | payer OTHER, SELFPAY ==
--- NOTE | 2021-02-20 16:05 | HP.PTEVAL_ITS ---
Patient's Visit Information LESTER SUE is a 35 year old M referred to Physical Therapy by TENNILLE PriceM with a diagnosis of R achilles repair 09/2020. Date of Evaluation: 02/20/21 Physical Therapist: Abdirizak Smith, PT, ATC - Visit Plan Frequency: 2-3x /Week Duration: 4-6 Weeks Plan: R ankle strengthening, PROM and mobs, core strengthening, bike, and HEP - Subjective Pt reports he had surgery to repair his R achilles tendon tear in September of 2020. 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 Pt reports he does feel like his R LE is 85% repaired at this time, but he notes the progress has plateaued at this time. Pt reports he is an avid walker and hiker, and wants to be able to return to that activity FRANKLIN. No R LE tingling or numbness at this time. Pt reports he is able to perform most of his IADL's, bu is just limited with all physical activity like jogging and racquet ball. Pt reports he has had no pain over the past week. No sleep difficulty secondary to pain. Pt does note after he works all day (he has a [employer] business) his pain will elevate to 1/10 - Pain R achilles Pain Intensity (Out of 10): 0 - Objective Neuro: B LE sensation is WNL to light touch. B patellar reflex= 2/3. ROM: L ankle DF= 15, PF= 55; R ankle DF= 15, PF= 40. MMT: L ankle 5/5 throughout. R ankle is 4+/5 throughout. Gait: Pt ambulates with sig valgus in forward lunge position - Balance/Special Test Scores Lower Extremity Functional Score: 64 - Goals Goal 1:: Increase core stability x 1 grade to aid with IADLs Goal Time Frame: 4-6 Weeks Goal 2:: Increase R ankle strength x 1 grade to aid with RTS without linmitation Goal Time Frame: 4-6 Weeks Goal 3:: I with HEP Goal Time Frame: 4-6 Weeks - Rehabilitation Potential Physical Therapy Diagnosis: R ankle pain, weakness, and limited ROM secondary to R achilles tendon repair Rehabilitation Potential: Good - Anticipated Interventions Patient/Client Instruction: Educate patient on: Condition, Plan of Care For the Purpose of:: To improve self management Therapeutic Exercise to Include: Strength training, Endurance training, Balance training, Flexibilty training, Gait and locomotor training, Active ROM, Dynamic Lumbar Stabilization For the Purpose of:: To decrease pain, To increase ROM, To improve muscle performance and motor function Cryotherapy (ice pack, ice massage): Yes For the Purpose of:: To decrease pain Thank you for the opportunity to evaluate your patient. For Medicare and Medicare HMO plans, please review the plan of care and approve it. It will need to be FAXED BACK to us at [phone] for Medicare purposes. For Medicare only, by signing this I certify the plan of care. Please let me know if there are questions or concerns regarding this plan of care. Physician Signature: Date:
--- NOTE | 2021-03-25 15:29 | HP.PTDCSUM ---
It has been my pleasure to treat LESTER SUE referred by Dr. Zara Canada DPM, with the diagnosis of R achilles repair 09/2020 for a total of 9 visit(s). Discharge Date: Please see the following information for a summary of their discharge status. Subjective: I am ready for discharge R achilles Pain Intensity (Out of 10): 0 % Improvement: 90 Objective/Function: L achilles pain 0/10 Goal 1:: Increase core stability x 1 grade to aid with IADLs Goal Progress: Goal Met Goal 2:: Increase R ankle strength x 1 grade to aid with RTS without linmitation Goal Progress: Goal Met Goal 3:: I with HEP Goal Progress: Goal Met Plan: Discharge to program If there are questions or concerns regarding this patient's physical therapy, please feel free to call me at [phone]. Thank you for the referral of this patient. Sincerely, Abdirizak Smith, PT, ATC Balance/Gait/Functional tests - Balance/Special Test Scores Lower Extremity Functional Score: 73
== END 2021-03-25 19:00 | disposition home or self-care (01) ==
LOC: PT 15:00
PROVIDERS: Referring Provider Podiatrist; Visit Provider Podiatrist
DX: S86.011D Strain of right Achilles tendon, subsequent encounter (principal)
CPT/HCPCS: 97110; 97161; 97164

== ENCOUNTER 2021-07-15 16:15 | Outpatient (CLI) | payer OTHER, SELFPAY ==
[2021-07-15 18:00] LABS: Vitamin B12 448 pg/mL (211-911)
[2021-07-15 18:03] LABS: Cholesterol 295 mg/dL (200); High Density Lipoprotein 43 mg/dL; Iron 77 ug/dL (65-175); Triglycerides 202 mg/dL; Very Low Density Lipoprotein 40 mg/dL (5-40)
== END 2021-07-15 23:59 | disposition home or self-care (01) ==
LOC: LAB 16:17
PROVIDERS: Visit Provider Nurse Practitioner Adult Health
DX: E78.5 Hyperlipidemia, unspecified (principal); Z13.21 Encounter for screening for nutritional disorder
CPT/HCPCS: 36415; 80061; 82607; 83540

== ENCOUNTER → 2023-05-13 | Outpatient (CLI) | payer OTHER, SELFPAY ==
[2023-05-13 09:50] LABS: Bacteria 0 SEEN /hpf (None Seen); Mucous, Urine 0 SEEN /hpf (<or=2+); Squamous Epithelial Cells - UA 0 SEEN /hpf (0-5); White Blood Cells 0 SEEN /hpf (0-5)
--- OUTSIDE RECORDS SUMMARY | 2023-05-13 10:07 | XMS RPT_ITS | CCD ---
Author Name Unknown Address [address] [place] [address] Organization [facility] Results Test Name Value Interpretation Reference Range Facil ity Summary Purpose Family History No Family History Records FoundNo Family History Records Found Advance Directives No Advanced Directives Records FoundNo Advanced Directives Records Found Additional Source Comments (unrecognized sect ion and content) No Status Records FoundNo Status Records Found INFORMATION SOURCE (unrecogn ized section and content) DATE CREATED AUTHOR AUTHOR'S WARREN ATION 07/13/2022 [facility] FOR RECORDS PERTAINING TO PATIENTS WHO ARE OR HAVE BEEN ENROLLED IN A CHEMICAL DEPENDENCY/SUBSTANCEABUSE PROGRAM, SOME INFORMATION MAY BE OMITTED. This clinical summary was aggregated from multiple sources. Caution should be exercised in using it in the provision of clinical care. This summary normalizes information from multiple sources, and as a consequence, information in this document may materially change the coding, format and clinical context of patient data. In addition, data may be omitted in some cases. CLINICAL DECISIONS SHOULD BE BASED ON THE PRIMARY CLINICAL RECORDS. [facility]. provides no warranty or guarantee of the accuracy or completeness of information in this document.
[2023-05-13 11:05] LABS: Color, Urine Yellow (Yellow); Glucose, Dipstick Normal (Normal); Ketone-Dipstick Negative (Negative); Leukocyte Esterase-Dipstick Negative /ul (Negative); Nitrite-Dipstick Negative (Negative); Occult Blood-Urine Negative /ul (Negative); Protein-Dipstick Negative (Negative); Urine Bilirubin Dipstick Negative (Negative); Urine Clarity Clear (Clear); Urine Urobilinogen Normal (Normal)
[2023-05-13 11:16] LABS: Absolute Lymphocyte Count 2.18 X10^3/uL (0.83-4.51); Absolute Neutrophil Count 2.8 X10^3/uL (2.0-7.7); Basophil# 0.06 X10^3/uL; Eosinophil# 0.41 X10^3/uL; Eosinophils% 6.8 % (0-5); Hematocrit 47.8 % (40-54); Hemoglobin 15.8 g/dL (13.0-16.5); Lymphocyte # 2.18 X10^3/ul (0.83-4.51); Lymphocyte % 36.1 % (19-41); Mean Corp Hgb Conc 33.1 g/dL (32-36); Mean Corpuscular Hgb 29.8 pg (27.0-32.0); Mean Corpuscular Volume 90.2 fL (80-94); Mean Platelet Vol. 8.6 fl (6.2-12.0); Monocyte# 0.55 X10^3/uL; Monocyte% 9.1 % (0-10); NRBC Flagged by Analyzer 0 % (0-5); Neutrophil # 2.83 X10^3/uL (2.7-7.7); Neutrophil % 46.8 % (47-70); Platelet Count 402 K/mm3 (150-450); RBC Distribution Width CV 12.9 % (11.6-14.6)
[2023-05-13 11:20] LABS: Red Blood Cells-Urine 0 SEEN /hpf (0-5)
[2023-05-13 11:48] LABS: Vitamin D,25 Hydroxy 27.9 ng/mL
[2023-05-13 11:57] LABS: ALB/GLOB Ratio 1.3 RATIO (0.9-2.4); AST(SGOT) 20 U/L (15-37); Alanine Aminotransfer ALT/SGPT 46 U/L (16-61); Albumin, Serum 4.1 g/dL (3.2-5.0); Alkaline Phosphatase 40 U/L (45-117); Anion Gap 5 (5-15); BUN 14 mg/dL (7-18); BUN/Creat Ratio 14.1 RATIO (10-20); Calcium,Total 9.3 mg/dL (8.5-10.1); Chloride 105 mmol/L (98-107); Cholesterol 197 mg/dL (200); Creatinine, Serum 0.99 mg/dL (0.70-1.30); EST Glomerular Filtration Rate 91 mL/min (>60); Est Glom Filt Rate - Afr Amer 110 mL/min (>60); Globulin 3.1 g/dL (2.2-4.2); Glucose 98 mg/dL (74-106); High Density Lipoprotein 49 mg/dL; Protein, Total 7.2 g/dL (6.4-8.2); Sodium Level 140 mmol/L (136-145); Thyroid Stim Hormone (TSH) 2.06 uIU/mL (0.358-3.74); Triglycerides 96 mg/dL; Very Low Density Lipoprotein 19 mg/dL (5-40)
== END | disposition home or self-care (01) ==
PROVIDERS: Referring Provider Nurse Practitioner Family; Visit Provider Nurse Practitioner Family
DX: R35.0 Frequency of micturition (principal); E78.5 Hyperlipidemia, unspecified; E55.9 Vitamin D deficiency, unspecified
CPT/HCPCS: 36415; 80053; 80061; 81001; 82306; 84443; 85025; 87086

== ENCOUNTER → 2023-05-18 | Outpatient (CLI) | payer OTHER, SELFPAY ==
--- NOTE | 2023-05-18 11:31 | US_ITS ---
STUDY: ULTRASOUND - URINARY BLADDER REASON FOR EXAM: Male, 37 years old. FREQUENCY OF MICTURITION TECHNIQUE: Ultrasound evaluation of the urinary bladder was performed with real-time and static cuello-scale imaging. COMPARISON: None. FINDINGS: There is no right UVJ calculus. There is a visualized right ureteral jet . There is no left UVJ calculus. There is a visualized left ureteral jet . The distended volume of the urinary bladder is 277 ml. The empty volume of the urinary bladder is 20 ml. The bladder wall is within normal limits. The bladder wall measures 2.7 mm. There is no demonstrated bladder wall mass lesion. There are no demonstrated bladder calculi. US/Post Void Residual Bladder IMPRESSION: Normal ultrasound of the urinary bladder. Electronically Signed: Wil Mojica MD at 12:52 EST ,
--- OUTSIDE RECORDS SUMMARY | 2023-05-18 11:49 | XMS RPT_ITS | CCD ---
Author Name Unknown Address [address] [place] [address] Organization [facility] Results Test Name Value Interpretation [...] DATE CREATED AUTHOR AUTHOR'S WARREN ATION 07/13/2022 [facility] FOR RECORDS PERTAINING TO PATIENTS WHO ARE [...] BE BASED ON THE PRIMARY CLINICAL RECORDS. [facility] [employer] [facility]. provides no warranty or guarantee of the accuracy or completeness of information in this document.
== END | disposition home or self-care (01) ==
LOC: US 11:30
PROVIDERS: Referring Provider Nurse Practitioner Family; Visit Provider Nurse Practitioner Family
DX: R35.0 Frequency of micturition (principal)
CPT/HCPCS: 51798

== ENCOUNTER → 2024-03-03 | Outpatient (CLI) | payer OTHER, SELFPAY ==
[2024-03-03 12:37] LABS: Absolute Lymphocyte Count 2.09 X10^3/uL (0.83-4.51); Absolute Neutrophil Count 2.5 X10^3/uL (2.0-7.7); Basophil# 0.05 X10^3/uL; Basophil% 0.9 % (0-1); Eosinophil# 0.42 X10^3/uL; Eosinophils% 7.5 % (0-5); Hematocrit 47.3 % (40-54); Hemoglobin 15.6 g/dL (13.0-16.5); Lymphocyte # 2.09 X10^3/ul (0.83-4.51); Lymphocyte % 37.3 % (19-41); Mean Platelet Vol. 8.2 fl (6.2-12.0); Monocyte# 0.52 X10^3/uL; Monocyte% 9.3 % (0-10); NRBC Flagged by Analyzer 0 % (0-5); Neutrophil # 2.52 X10^3/uL (2.7-7.7); Neutrophil % 44.8 % (47-70); Platelet Count 375 K/mm3 (150-450); RBC Distribution Width CV 13.2 % (11.6-14.6); RBC Distribution Width SD 45.2 fl (35.1-43.9); White Blood Count 5.6 K/mm3 (4.4-11.0)
[2024-03-03 13:18] LABS: ALB/GLOB Ratio 1.4 RATIO (0.9-2.4); AST(SGOT) 21 U/L (15-37); Alanine Aminotransfer ALT/SGPT 38 U/L (16-61); Albumin, Serum 4.2 g/dL (3.2-5.0); Alkaline Phosphatase 35 U/L (45-117); Anion Gap 3 (5-15); BUN 17 mg/dL (7-18); BUN/Creat Ratio 18.1 RATIO (10-20); Calcium,Total 9.7 mg/dL (8.5-10.1); Chloride 104 mmol/L (98-107); Cholesterol 282 mg/dL (200); Creatinine, Serum 0.94 mg/dL (0.70-1.30); EST Glomerular Filtration Rate 96 mL/min (>60); Est Glom Filt Rate - Afr Amer 116 mL/min (>60); Globulin 3.1 g/dL (2.2-4.2); Glucose 100 mg/dL (74-106); High Density Lipoprotein 57 mg/dL; Potassium 4.8 mmol/L (3.5-5.1); Protein, Total 7.3 g/dL (6.4-8.2); Sodium Level 137 mmol/L (136-145); Triglycerides 121 mg/dL; Very Low Density Lipoprotein 24 mg/dL (5-40)
== END | disposition home or self-care (01) ==
LOC: VSLAB 09:20
PROVIDERS: PCP Nurse Practitioner Family
DX: R55 Syncope and collapse (principal); E78.5 Hyperlipidemia, unspecified
CPT/HCPCS: 36415; 80053; 80061; 84443; 85025

== ENCOUNTER → 2024-04-20 | Outpatient (CLI) | payer OTHER, SELFPAY | END | disposition home or self-care (01) | PROVIDERS: PCP Nurse Practitioner Family; Referring Provider Nurse Practitioner Family; Visit Provider Nurse Practitioner Family | DX: R55 Syncope and collapse (principal) | CPT/HCPCS: 93225; 93226 ==

== ENCOUNTER → 2024-04-22 | Outpatient (CLI) | payer OTHER, SELFPAY ==
--- NOTE | 2024-04-22 13:02 | ECHOD_ITS ---
Reason For Study: SYNCOPE AND COLLAPSE Procedure This was a 2D Doppler, Color Flow transthoracic echocardiogram. Exam performed in department. Left Ventricle Normal LV size. The estimated ejection fraction is 60 %. No evidence for diastolic dysfunction. No regional wall motion abnormalities noted. Right Ventricle Normal RV size. Normal systolic function. Atria The left and right atria are normal. No doppler evidence for ASD. Mitral Valve There is no mitral valve stenosis. Trivial mitral valve insufficiency. Tricuspid Valve There is no tricuspid stenosis. Trivial tricuspid valve insufficiency. Pulmonary artery systolic pressure is 20 mmHg. Aortic Valve Trisinus/trileaflet aortic valve. There is no aortic stenosis. No aortic valve insufficiency. Pulmonic Valve There is no pulmonic valvular stenosis. No pulmonic valve insufficiency. Great Vessels Normal aortic root. Pericardium/Pleural No pericardial effusion. MMode/2D Measurements & Calculations LVIDd: 4.7 cm IVSd: 0.91 cm Ao root diam: 3.3 cm LVIDs: 3.2 cm LVPWd: 0.89 cm RVDd: 3.5 cm FS: 32.6 % LAV(MOD-bp): 27.3 ml LVAd ap4: 38.3 cm2 SV(MOD-sp4): 80.8 ml LAV(MOD-bp) Indexed: 13.5 ml/m2 LVLd ap4: 9.0 cm SI(MOD-sp4): 40.0 ml/m2 LAV(MOD-sp2): 27.1 ml EDV(MOD-sp4): 131.9 ml LAV(MOD-sp4): 26.4 ml EDV(sp4-el): 138.6 ml LVAs ap4: 21.9 cm2 LVLs ap4: 7.6 cm ESV(MOD-sp4): 51.0 ml ESV(sp4-el): 53.7 ml EF(MOD-sp4): 61.3 % EF(sp4-el): 61.2 % SV(sp4-el): 84.9 ml LA A4 area: 12.8 cm2 LA dimension(2D): 3.1 cm RA A4 area: 13.1 cm2 TAPSE: 2.0 cm Time Measurements MV dec time: 0.19 sec Doppler Measurements & Calculations MV E max darren: 75.3 cm/sec Lat Peak E' Darren: 13.0 cm/sec Med Peak E' Darren: 14.1 cm/sec MV A max darren: 59.7 cm/sec E/E' lat: 5.8 E/E' med: 5.3 MV E/A: 1.3 Ao V2 max: 103.8 cm/sec LV V1 max: 83.0 cm/sec PA V2 max: 102.6 cm/sec Ao max P.3 mmHg LV V1 max P.8 mmHg TR max darren: 199.6 cm/sec TR max P.9 mmHg ECHO/Echo Complete Interpretation Summary The estimated ejection fraction is 60 %. No evidence for diastolic dysfunction. Trivial mitral valve insufficiency. Ordering Physician: Kylee Bragg Referring Physician: SHERRILL JENKINS Performed By: Josefa Cartagena RDCS
== END | disposition home or self-care (01) ==
PROVIDERS: PCP Nurse Practitioner Family; Referring Provider Nurse Practitioner Family; Visit Provider Nurse Practitioner Family
DX: R55 Syncope and collapse (principal)
CPT/HCPCS: 93306

== ENCOUNTER → 2024-06-16 | Outpatient (CLI) | payer OTHER, SELFPAY ==
[2024-06-16 13:19] LABS: Cholesterol 292 mg/dL (<=200); High Density Lipoprotein 49 mg/dL; Low Density Lipoprotein Calc. 218 mg/dL; Triglycerides 125 mg/dL; Very Low Density Lipoprotein 25 mg/dL (5-40); cholesterol:hdl ratio screen 5.91
== END | disposition home or self-care (01) ==
LOC: LAB 11:45
PROVIDERS: PCP Nurse Practitioner Family; Referring Provider Internal Medicine Cardiovascular Disease; Visit Provider Internal Medicine Cardiovascular Disease
DX: E78.5 Hyperlipidemia, unspecified (principal)
CPT/HCPCS: 36415; 80061

== ENCOUNTER → 2024-07-08 | Outpatient (CLI) | payer OTHER, SELFPAY ==
--- NOTE | 2024-07-08 08:42 | CT_ITS ---
PROCEDURE: LIMITED CHEST CT CARDIAC ONLY REASON FOR EXAM: HYPERLIPIDEMIA TECHNIQUE: Supine chest CT without contrast, high resolution CT (HRCT) protocol. One or more dose reduction techniques were used (e.g., Automated exposure control, adjustment of the mA and/or kV according to patient size, use of iterative reconstruction technique). COMPARISON: None FINDINGS: Hardware: None Lymph nodes: No mediastinal hilar or axillary lymphadenopathy. Heart and Vasculature: Normal heart size. No pericardial effusion. Coronary Artery Calcifications: Absent Lungs and Airways: The lungs are normally expanded and clear. No septal thickening nodules or abnormal pulmonary opacities. Pleura: Unremarkable Upper Abdomen: Unremarkable Bones: Bone windows are unremarkable. CT/Limited Chest CT Cardiac Only IMPRESSION: Coronary artery calcification (CAC) is is absent Reading Location: [place] [id number]
--- NOTE | 2024-07-08 13:27 | CA.SCORE ---
Calcium Scoring Date of Study:: 07/08/24 Indications Indications: Palpitations Coronary Calcium Scoring: High-resolution Computed Tomographic imaging of the chest was performed on [07/08/24 ], with particular attention paid to the coronary arteries. Images from the examination were analyzed for the presence and extent of coronary artery calcification , using coronary calcium quantification software. The patient tolerated the procedure well and there were no complications. The results of the coronary calcification analysis are provided below. Findings Coronary Artery Left Main (LM): 0 Left Anterior Descending (LAD): 0 Left Circumflex (LCX): 0 Right Coronary Artery (RCA): 0 Total Agatston Score: 0 Percentile Rankin% Calcium Scoring Interpretation: Different methods to categorize the overall amount of coronary plaque. Overall amount CAC SIS Visual of coronary plaque P1 Mild -100 <2 1-2 vessels with mild amount of plaque P2 Moderate 101-300 3-4 1-2 vessels with moderate amount, 3 vessels with mild amount of plaque P3 Severe 301-999 5-7 3 vessels with moderate amount, 1 vessel with severe amount of plaque P4 Extensive >1000 >8 2-3 vessels with severe amount of plaque Conclusion: No atherosclerotic plaque noted
== END | disposition home or self-care (01) ==
LOC: CT 08:40
PROVIDERS: PCP Nurse Practitioner Family; Referring Provider Internal Medicine Cardiovascular Disease; Visit Provider Internal Medicine Cardiovascular Disease
DX: R00.2 Palpitations (principal); E78.5 Hyperlipidemia, unspecified
CPT/HCPCS: 75571; 76380

== ENCOUNTER → 2024-07-11 | Outpatient (CLI) | payer OTHER, SELFPAY ==
--- NOTE | 2024-07-11 14:03 | STE_ITS ---
Reason For Study Reason For Study: Hyperlipidemia, Palpitations Stress Results Protocol: Yony Protocol Maximum Predicted HR: 183 bpm Target HR: 156 bpm % Maximum Predicted HR: 91 % DurationHeart Rate Stage (mm:ss) (bpm) BP Comment Baseline 71 138/84Patient denies chest pain Stage 1 3:00 87 138/82Patient denies chest pain Stage2 3:00 100 154/90Patient denies chest pain Stage 3 3:00 122 166/96Patient denies chest pain Stage 4 3:00 157 170/98Patient complains of shortness of breath. Denies chest pain Stage 5 1:15 166 / Patient complains of increased shortness of breath. Denies chest pain. Recovery 99 130/80Patient denies shortness of breath or chest pain Stress Duration: 13:15 mm:ss Maximum Stress HR: 166 bpm Baseline Echocardiogram Findings Baseline LV EF 50%. Stress Echo Wall motion Data Resting WM Intermediate WM Stress WM Resting Wall Motion Wall Motion Stress No regional wall motion abnormalities Anterior septum fails to augment post noted. exercise. EKG Data The baseline ECG displays normal sinus rhythm. Stress ECG fails to show any ischemic changes. No arrhythmias noted. ECHO/Stress Test Echo w/o Contrast Interpretation Summary Baseline LV EF 50%. Anterior septum fails to augment post exercise. Positive stress echo for ischem ia. Stress ECG fails to show any ischemic changes. No arrhythmias noted. Ordering Physician: Guzman Nix Referring Physician: Guzman Nix Performed By: Josefa Cartagena RDCS
== END | disposition home or self-care (01) ==
PROVIDERS: PCP Nurse Practitioner Family; Referring Provider Internal Medicine Cardiovascular Disease; Visit Provider Internal Medicine Cardiovascular Disease
DX: R00.2 Palpitations (principal); E78.5 Hyperlipidemia, unspecified
CPT/HCPCS: 93017; 93350

== ENCOUNTER → 2024-11-01 | Outpatient (CLI) | payer OTHER, SELFPAY ==
[2024-11-01 11:42] LABS: AST(SGOT) 23 U/L (<=37); Alanine Aminotransfer ALT/SGPT 34 U/L (<=46); Albumin, Serum 4.7 g/dL (3.5-5.0); Alkaline Phosphatase 37 U/L (40-129); Bilirubin, Direct 0.22 mg/dL (0.00-0.30); Cholesterol 256 mg/dL (<=200); Globulin 2.5 g/dL (2.2-4.2); Low Density Lipoprotein Calc. 176 mg/dL; Triglycerides 148 mg/dL; Very Low Density Lipoprotein 30 mg/dL (5-40); cholesterol:hdl ratio screen 5.11
== END | disposition home or self-care (01) ==
LOC: LAB 08:16
PROVIDERS: PCP Nurse Practitioner Family; Referring Provider Internal Medicine Cardiovascular Disease; Visit Provider Internal Medicine Cardiovascular Disease
DX: E78.5 Hyperlipidemia, unspecified (principal)
CPT/HCPCS: 36415; 80061; 80076